=== PATIENT | male | born 1985 | race Two or more races ===

== ENCOUNTER 2023-01-28 19:20 | Day surgery (SDC) | payer OTHER, SELFPAY ==
[2023-01-28 19:30] VITALS: BP 144/84; PULSE 71; RESP 18; TEMP 36.4; O2SAT 99; BMI 26.5
--- NOTE | 2023-01-28 20:04 | CRLHL7_ITS ---
For Patients: As a result of the Century Cures Act, medical imaging exams and procedure reports are released immediately into your electronic medical record. You may view this report before your referring provider. If you have questions, please contact your health care provider. INDICATION: Abdominal pain. Right lower quadrant pain TECHNIQUE: CT abdomen and pelvis acquired with 96 cc Isovue 370 IV contrast. COMPARISON: None. FINDINGS: Lower chest: Scattered atelectasis. Tiny hiatal hernia. Liver: Unremarkable. Normal in size and attenuation. No suspicious masses. Gallbladder and bile ducts: Unremarkable. No stones or inflammation. No biliary dilatation. Pancreas: Unremarkable. No mass or inflammation. Spleen: Unremarkable. Normal in size. No masses. Adrenal glands: Unremarkable. No nodules. Kidneys: Unremarkable. No suspicious masses, stones, or hydronephrosis. GI tract: Mildly distended/hyperemic appendix with periappendiceal inflammatory stranding, most pronounced about the mid to distal aspect. Vasculature: Abdominal aorta is normal in caliber. Mesenteric arteries are patent. Lymph nodes: No lymphadenopathy. Peritoneum/Abdominal Wall: Unremarkable. No sign of mass or infiltration. No free air or significant free fluid. Pelvis: Mildly distended bladder with circumferential wall thickening. Recommend correlation with urinalysis if UTI suspected. Bones: Unremarkable for age. IMPRESSION: Findings suggestive of acute uncomplicated appendicitis. No drainable fluid collection. Please note that all CT scans at this facility use dose modulation, iterative reconstruction, and/or weight-based dosing when appropriate to reduce radiation dose to as low as reasonably achievable. Dictated by Margarito Poole MD @ 01/28/2023 8:37:59 PM (Electronically Signed)
--- NOTE | 2023-01-28 20:06 | ED_ITS ---
HPI - Abdominal Pain General Chief Complaint: Abdominal Pain Stated Complaint: abdominal pain Time Seen by Provider: 01/28/23 20:00 History of Present Illness HPI narrative: Patient is a healthy 37-year-old gentleman who comes in today with 4 days parent bili cool pain which now radiates to the right lower quadrant. He has had some loose stools and diarrhea. He has had nausea without vomiting. He has had no fevers no chills no night sweats. He has noticed increased difficulty with rebound tenderness over the last several days. He has had no similar symptoms and is taking Tylenol Motrin to limited extent with no affect. No dysuria is noted no chest pain or shortness of breath. Related Data Home Medications Medication Instructions Recorded Confirmed No Known Home Medications 01/28/23 01/28/23 Allergies Allergy/AdvReac Type Severity Reaction Status Date / Time No Known Drug Allergies Allergy Verified 01/28/23 19:33 Review of Systems Status of ROS Reports: 10 or more systems reviewed and unremarkable except as noted in History and below PFSH PFS Social History Smoking Status: Never smoker Do you use any of these nicotine containing products: None Second hand tobacco smoke exposure: No How often do you have a drink containing alcohol: 4 or more times a week How many standard drinks containing alcohol do you have on a typical day: 3 or 4 AUDIT-C Alcohol total score: 5 Non-prescribed substance use: denies use Exam Narrative: Exam Narrative: EXAM GENERAL: Patient appears comfortable and well. EYES: No scleral icterus. LYMPH: No supraclavicular or cervical lymphadenopathy. SKIN: Visible skin seen during exam normal or with benign process only. EXT: No dependent lower extremity pedal edema. HEART: Regular rate and rhythm with no murmurs, rubs, or gallops. LUNGS: Clear to auscultation bilaterally with no crackles or wheezes. ABD: Nondistended hypoactive bowel sounds with tenderness in the right lower quadrant mild rebound noted. PSYCH: Good eye contact, speech is not pressured. Const: Vital Signs, click to edit/add: Vital Signs - 24 hr 01/28/23 19:30 Temperature 97.5 F L Pulse Rate [Pulse Oximeter] 71 Respiratory Rate 18 Blood Pressure [Ri ght Upper Arm] 144/84 H Pulse Oximetry 99 Oxygen Delivery Me thod Room Air Course Course ED Course: Patient seen examined. CBC amylase CMP UA lactate CT abdomen pelvis ordered. Vital Signs Vital signs: Initial Vital Signs Temperature 97.5 F L 01/28/23 19:30 Temperature Source Temporal Artery Scan 01/28/23 19:30 Pulse Rate 71 01/28/23 19:30 Respiratory Rate 18 01/28/23 19:30 Blood Pressure 144/84 H 01/28/23 19:30 Blood Pressure Mean 104 01/28/23 19:30 Blood Pressure Position Sitting 01/28/23 19:30 Pulse Oximetry 99 01/28/23 19:30 Oxygen Delivery Method Room Air 01/28/23 19:30 Vital Signs Temperature 97.5 F L 01/28/23 19:30 Pulse Rate 71 01/28/23 19:30 Respiratory Rate 18 01/28/23 19:30 Blood Pressure 144/84 H 01/28/23 19:30 Pulse Oximetry 99 01/28/23 19:30 Oxygen Delivery Method Room Air 01/28/23 19:30 Temperature 97.5 F L 01/28/23 19:30 Pulse Rate 71 01/28/23 19:30 Respiratory Rate 18 01/28/23 19:30 Blood Pressure 144/84 H 01/28/23 19:30 Pulse Oximetry 99 01/28/23 19:30 Oxygen Delivery Method Room Air 01/28/23 19:30 MDM - Abdominal Pain MDM Narrative Medical decision making narrative: Patient is a 37-year-old gentleman comes in today with 3-4 days of right lower quadrant pain. Laboratory workup is largely unremarkable but CT of the abdomen pelvis shows acute uncomplicated non perforated appendicitis. Patient will be kept NPO. He will be admitted to Dr. Xin malave General surgery who will begin IV Zosyn and plan to operate in the morning. Differential Diagnosis Differential diagnosis: Likely abdominal pain, acute appendicitis, calculus of kidney, constipation, gastroenteritis, pancreatitis and small bowel obstruction Lab Data Labs: Lab Results 01/28/23 01/28/23 Range/Units 20:15 20:30 WBC 8.70 (4.50-11.00) K/uL RBC 4.78 (4.30-5.90) m/uL Hgb 14.5 (13.5-17.5) gm/dL Hct 43.3 (37.0-53.0) % MCV 91 (80-100) fL MCH 30 (26-34) pg MCHC 34 (32-36) gm/dL RDW Coeff of Roger 12.6 (11.5-15.5) % Plt Count 268 (140-440) K/uL Neut % (Auto) 54.5 (42.0-72.0) % Lymph % (Auto) 30.3 (20-44) % Screven % (Auto) 8.4 (0.0-11.0) % Eos % (Auto) 6.2 (0.0-7.0) % Baso % (Auto) 0.6 (0.0-3.0) % Neut # (Auto) 4.74 (1.7-7.0) K/uL Lymph # (Auto) 2.64 (0.90-2.90) K/uL Screven # (Auto) 0.70 (0.00-0.90) K/UL Eos # (Auto) 0.54 H (0.00-0.50) K/uL Baso # (Auto) 0.05 (0.00-0.30) K/uL Abs Immat Gran (auto) 0.00 (0.00-0.30) K/uL Imm/Tot Granulo (auto) 0.0 % Sodium 140 (135-149) mmol/L Potassium 3.6 (3.6-5.1) mmol/L Chloride 99 (96-114) mmol/L Carbon Dioxide 28 (20-32) mmol/L Anion Gap 13 (7-15) mEq/L BUN 12 (5-24) mg/dL Creatinine 1.1 (0.5-1.5) mg/dL Estimated Creat Clear 98.88 Estimated GFR 89 ml/min Glucose 95 (60-115) mg/dL Lactate 0.6 (0.5-1.9) mmol/L Calcium 9.5 (8.4-10.6) mg/dL Total Bilirubin 0.8 (0.1-1.5) mg/dL AST 33 (12-35) U/L ALT 44 (4-50) U/L Alkaline Phosphatase 92 (40-150) U/L Total Protein 8.0 (6.0-8.3) g/dL Albumin 4.5 (3.3-5.0) g/dL Amylase 95 H (18-89) U/L Discharge Plan Discharge Clinical Impression: Acute appendicitis Patient Disposition: Admitted As Observation Condition: Stable Activity Level: Other Discharge Diet: Other Prescriptions: No Action No Known Home Medications Follow Up/Referrals: Provider,Not a Local [Primary Care Provider] -
[2023-01-28 20:29] LABS: Basophils Absolute Auto 0.05 K/uL (0.00-0.30); Basophils Percent Auto 0.6 % (0.0-3.0); Eosinophils Absolute Auto 0.54 K/uL (0.00-0.50); Eosinophils Percent Auto 6.2 % (0.0-7.0); Hematocrit 43.3 % (37.0-53.0); Hemoglobin* 14.5 gm/dL (13.5-17.5); Lymphocytes Absolute Auto 2.64 K/uL (0.90-2.90); Lymphocytes Percent Auto 30.3 % (20-44); Mean Corpuscular HGB Conc 34 gm/dL (32-36); Mean Corpuscular Hemoglobin 30 pg (26-34); Mean Corpuscular Volume 91 fL (80-100); Monocytes Percent Auto 8.4 % (0.0-11.0); Neutrophils Absolute Auto 4.74 K/uL (1.7-7.0); Neutrophils Percent Auto 54.5 % (42.0-72.0); Platelet Count* 268 K/uL (140-440); RDW Coefficient of Variation % 12.6 % (11.5-15.5); Red Blood Count 4.78 m/uL (4.30-5.90)
[2023-01-28 20:32] LABS: Slide Review Reflex No
[2023-01-28 20:41] LABS: Lactate* 0.6 mmol/L (0.5-1.9)
[2023-01-28 20:42] LABS: Chloride* 99 mmol/L (96-114)
[2023-01-28 20:43] LABS: Albumin* 4.5 g/dL (3.3-5.0)
[2023-01-28 20:44] LABS: Potassium* 3.6 mmol/L (3.6-5.1); Sodium* 140 mmol/L (135-149)
[2023-01-28 20:46] LABS: Alanine Aminotransferase* 44 U/L (4-50); Alkaline Phosphatase* 92 U/L (40-150); Amylase* 95 U/L (18-89); Anion Gap 13 mEq/L (7-15); Aspartate Amino Transferase* 33 U/L (12-35); Bilirubin Total* 0.8 mg/dL (0.1-1.5); Blood Urea Nitrogen* 12 mg/dL (5-24); Carbon Dioxide* 28 mmol/L (20-32); Creatinine* 1.1 mg/dL (0.5-1.5); Est. Creatinine Clearance* 98.88; Estimated Glomerular Filt Rate 89 ml/min; Glucose* 95 mg/dL (60-115)
[2023-01-28 20:47] LABS: Calcium* 9.5 mg/dL (8.4-10.6)
[2023-01-28 20:48] LABS: Appearance Urine Clear (Clear); Bilirubin Urine Negative (Negative); Blood Urine Negative (Negative); Color Urine Yellow (Yellow); Glucose Urine Negative (Negative); Ketones Urine Negative (Negative); Leukocyte Esterase Urine Negative (Negative); Nitrite Urine Negative (Negative); Protein Urine Negative (Negative); Specific Gravity Urine 1.015 (1.000-1.030); Urobilinogen Urine 0.2 (0.2-1.0)
[2023-01-28] MEDS: PIPERACILLIN/TAZOBACTAM 3.375 GM in 0.9 % SODIUM CHLORIDE Mini-bag 100 ML IVPB (21:33)
[2023-01-28] MEDS: 0.9 % SODIUM CHLORIDE 1000 ml 1,000 ML 125 ML IV (21:33)
[2023-01-28 21:52] VITALS: BP 131/100; PULSE 71; RESP 18; TEMP 36.6; O2SAT 100; BMI 27.1
[2023-01-29] VITALS (16 sets, daily range): BP systolic 109–142; BP diastolic 66–89; PULSE 55–84; RESP 16–18; TEMP 35.9–36.7; O2SAT 98–100
[2023-01-29] MEDS: PIPERACILLIN/TAZOBACTAM 3.375 GM in 0.9 % SODIUM CHLORIDE Mini-bag 100 ML IVPB ×2 (03:26→09:12)
--- NOTE | 2023-01-29 06:20 | PC.NURSE ---
END OF SHIFT NOTE: PT PLEASANT AND COOPERATIVE. A&Ox3. DENIES CP, SOB, N/V. AMBULATES INDEPENDENTLY. VSS ON RA; AFEBRILE. RLQ PAIN 3/10 WHICH HAS BEEN TOLERABLE OVERNIGHT. CALL LIGHT WITHIN PT?S REACH. NPO SINCE ARRIVAL TO THE UNIT @2151. ?
[2023-01-29] MEDS: LACTATED RINGERS 1000 ML 1,000 ML 100 ML IV (08:56)
--- NOTE | 2023-01-29 09:04 | P.GSHP_ITS ---
History of Present Illness History of Present Illness Date Seen: 01/29/23 Chief complaint: abdominal pain Narrative: Cooper Mohan is a 37 year old male who presented to the emergency department with right lower quadrant abdominal pain. He states that the pain started 4 days earlier. Was initially in the epigastric region but the migrated to the right lower quadrant. The pain was persistent and described as an ?achy sensation?. He has had a decrease in appetite over last few days but is feeling hungry this morning. Food would make the pain worse. He denies any nausea or vomiting. Has had some mild diarrhea. No fevers at home. He has never had abdominal surgery before. Review of Systems Status of ROS: Reports: 10 or more systems reviewed and unremarkable except as noted in History and below PFSH PFS Social History What is your current living situation?: I presently have a place to live Problems where you live: no known problems Problems where you live details: N/A In the past 12 months, utilities in danger of being shut off: no In past 12 months, lack of transportation kept you from medical appts, meetings, work, or getting things needed for daily living: no In the past 12 mos, have been you worried that your food would run out before you had money to buy more?: never true In the past 12 mos, the food you bought just didn't last and you didn't have money to buy more?: never true Highest level of school completed/degree received: Associate degree: occupational, technical, vocational program Smoking Status: Never smoker Do you use any of these nicotine containing products: None Second hand tobacco smoke exposure: No How often do you have a drink containing alcohol: 4 or more times a week Alcohol type: beer How many standard drinks containing alcohol do you have on a typical day: 3 or 4 AUDIT-C Alcohol total score: 5 Non-prescribed substance use: denies use Caffeine: Yes (COFFEE 6 CUPS/DAILY) How often does anyone, including family, friends and others, physically hurt you : never How often does anyone, including family, friends and others, insult or talk down to you: never How often does anyone, including family, friends and others, threaten you with harm: never How often does anyone, including family, friends and others, scream or curse at you: never service: No Meds Home Medications and Allergies Home Medications Medication Instructions Recorded Confirmed Type No Known Home Medications 01/28/23 01/28/23 History Allergies Allergy/AdvReac Type Severity Reaction Status Date / Time No Known Drug Allergies Allergy Verified 01/28/23 19:33 Exam Narrative: Exam Narrative: General: Alert and oriented, no acute distress. Nontoxic in appearance Respiratory: Equal breath rise, maintained on room air CV: Well perfused, regular rhythm and rate Abdomen: Soft, mild tenderness to deep palpation right lower quadrant with no guarding or rebound. Const: Vital Signs, click to edit/add: Vital Signs - 24 hr 01/28/23 19:30 01/28/23 21:52 01/28/23 21:52 Temperature 97.5 F L 97.9 F 97.9 F Pulse Rate [Pulse Oximeter] 71 71 71 Respiratory Rate 18 18 18 Blood Pressure [Ri ght Arm] 131/100 H 131/100 H Blood Pressure [Ri ght Upper Arm] 144/84 H Pulse Oximetry 99 100 100 Oxygen Delivery Me thod Room Air Room Air Room Air 01/28/23 21:52 01/28/23 21:52 01/29/23 00:10 Temperature 97.4 F L Pulse Rate [Pulse Oximeter] 71 62 Respiratory Rate 18 16 Blood Pressure [Ri ght Arm] 122/75 Blood Pressure [Ri ght Upper Arm] Pulse Oximetry 100 98 Oxygen Delivery Me thod Room Air Room Air 01/29/23 03:00 01/29/23 07:00 01/29/23 07:00 Temperature 98.1 F Pulse Rate [Pulse Oximeter] 55 L 60 60 Respiratory Rate 16 18 16 Blood Pressure [Ri ght Arm] 109/68 123/76 Blood Pressure [Ri ght Upper Arm] Pulse Oximetry 99 98 Oxygen Delivery Me thod Room Air Room Air Results Results Labs: No leukocytosis. Abdomen CT scan report/results: report reviewed and image reviewed Assessment and Plan Assessment and plan (1) Acute appendicitis: Status: Acute Plan The patient presented with a history and exam suspicious for possible appendicitis. Would expect him to have more of a leukocytosis and abdominal pain if this process had been going on for [address] scan was obtained which showed dilation of the appendix with mild surrounding inflammation consistent with acute, uncomplicated appendicitis. I discussed the treatment options with the patient including non-surgical and surgical options. At this time he wishes to proceed with laparoscopic appendectomy. The risks of surgery were reviewed with the patient including the risks of bleeding, post-operative wound or intra-abdominal infection, injury to abdominal structures and possible conversion to an open operation. We also discussed anesthetic complications including [place], stroke, respiratory failure and blood clots. The patient voiced an understanding of our conversation, had the opportunity to ask questions, agreed to accept the risks of surgery and asked that we proceed with surgery.
[2023-01-29] MEDS: BUPIVACAINE 0.25% 30 ML INJECTION (09:39)
--- NOTE | 2023-01-29 09:43 | PM.GSPRC ---
Operative Note Pre-op diagnosis: Acute appendicitis Post-op diagnosis: Same, non perforated. Early appendicitis Type of Procedure: Laparoscopic appendectomy Indications: Patient is a 37-year-old male who came in with CT scan findings concerning for acute, uncomplicated appendicitis. Risks and benefits of operative intervention were discussed at length with the patient. Risks included but was not limited to: Bleeding, infection, risk of damage to surrounding structures, possible need for additional procedures, possible need to convert to an open operation and postoperative complications such as pneumonia, pulmonary emboli or CA. All questions and concerns were addressed with the patient agreeing to proceed. Procedure Description: After discussing the risks and benefits of the procedure, the patient signed informed consent.? The operative site was marked and the patient was brought to the operating room and placed on the operating table in supine position.? Care was taken to pad the patient's pressure points.?? The patient was then intubated by anesthesia.?? The operative site was then prepped and draped in the usual sterile fashion.? A time-out was then performed. Entrance to the abdomen was obtained via a 5 mm optical trocar in the left upper quadrant. The abdomen was insufflated and briefly surveyed for any signs of injury. There were none. A 12 mm port was placed lateral to the umbilicus as well as a 5 mm port in the left lower quadrant under direct vision. The patient was then placed in Trendelenburg position with the right side up. The small bowel was gently moved out of the way and the appendix was in view. The appendix was easily visualized, was grasped and pulled into view. Normal appendix near the base. Some mild dilation mid and tip of the appendix. No evidence of perforation. A mesenteric window was created between the base of the appendix and the mesoappendix. A 30 mm Endo-KOBI enrique load stapler was then used to transect the appendix at its base. A 60 mm vascular load stapler was then used to take the mesoappendix. The staple lines were inspected for bleeding. Small areas of pinpoint bleeding on the mesoappendix was controlled with electrocautery. The appendix was then removed from the abdomen using an Endo-Catch bag. The specimen was sent to pathology. The 12 mm port site fascia was closed with 0 Vicryl via the Rony-Gerry. All other ports were removed under direct visualization. The skin was then closed with absorbable subcuticular suture. Sterile dressings were then applied. Instrument sponge and needle counts were correct at the end of the case. The patient was then woken and transported to the PACU in stable condition. Findings: Early appendicitis, non perforated. Anesthesia: GETA Surgeon: Abena Walton MD Estimated blood loss (mL): 2 Specimen: Appendix Condition: stable Disposition: PACU Date of procedure: 01/29/23
--- NOTE | 2023-01-29 10:00 | P.ANES_ITS ---
Anesthesia Charges Start Date/Time Anesthesia Start Date: 01/29/23 Anesthesia Start Time: 08:52 Stop Date/Time Anesthesia Stop Date: 01/29/23 Anesthesia Stop Time: 09:59 Summary Emergency: HOSPICE SOCIAL WORKER
[2023-01-29] MEDS: ACETAMINOPHEN 325 MG TABLET 650 MG PO (12:35)
== END 2023-01-29 13:45 | disposition home or self-care (01) ==
LOC: ED 21:19 → SS 21:49 → MEDSURG 21:50
PROVIDERS: Emergency Provider Internal Medicine; Visit Provider Surgery
PROC: 0DTJ4ZZ Resection of Appendix, Percutaneous Endoscopic Approach (ICD-10-PCS; CPT 44970; principal; 2023-01-29 09:00)
DX: K35.80 Unspecified acute appendicitis (principal)
CPT/HCPCS: 44970; 00840; 36415; 74177; 80053; 81003; 82150; 83605; 85025; 88304; 99140; 99283; 99284; A9270; J0330; J0665; J1100; J1885; J2250; J2405; J2543; J2704; J2710; J3010; J7030; J7120; Q9967

== ENCOUNTER 2025-01-17 21:07 | Emergency (ER) | payer OTHER, SELFPAY ==
[2025-01-17] VITALS (28 sets, daily range): BP systolic 124–164; BP diastolic 69–94; PULSE 74–115; RESP 9–34; TEMP 36.8; O2SAT 95–98; BMI 26.5
--- OUTSIDE RECORDS SUMMARY | 2025-01-17 21:09 | XMS_ITS | Clinical Summary ---
Author Organization [facility] Address [address] [place] [id number] Care Team Providers Care Sales Representative Facility Services Name Role Phone Pcp, No Primary Care Provider Unavailabl e Allergies No known active allergies Medications MAGIC MOUTHWASH 1:1 (AMB SPECIAL MIXTURE)Indicat ions:Sore throat Take 5-10 mL by mouth 4 times daily if needed. May swish & swallow or swish & spit 240 mL 02/15/2018 Active Active Problems No known active problems Immunizations Immunization Administration Dates Next Due DTP 03/27/1993,08/03/1992,05/29/1992 ,03/26/1992 Hepatitis B (Peds) 05/03/2000,12/04/1999, 000 Influenza, IIV3 (Age >=3 years) 01/31/2003 MMR 05/20/1998,03/26/1992 Oral Polio Vaccine 03/26/1997,03/27/1993, 993,05/29/1992 Td (Age >=7 Years) 10/06/1996 Tuberculin (PPD) 03/26/1992 Social History Tobacco Use Types Packs/Day Years Used Date Smoking Tobacco: Never Smokeless Tobacco: Never Alcohol Use Standard Drinks/Week Comments Yes 0 (1 standard drink = 0.6 oz pur e alcohol) Social Connections Answer Date Recorded Frequency of Communication with Friends and Fami ly Not on file 03/28/2021 Financial Resource Strain Answer Date R ecorded Difficulty of Paying Living Expenses Not on file 03/28/2021 Difficulty of Paying Living Expenses Not on file 03/28/2021 Sex and Gender Information Value Date Recorded Sex Assigned at Not on file Legal Sex Male 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 Gender Identity Not on file Sexual Orientation Not on file Obstetrics History Last Filed Vital Signs Vital Sign Reading Time Taken Comments Blood Pressure 128/80 02/15/2018 11:14 AM DRYING ROOM SUPERVISOR Pulse 80 02/15/2018 11:14 AM DRYING ROOM SUPERVISOR Temperature 37 C (98.6 F) 02/15/2018 11:14 AM DRYING ROOM SUPERVISOR Respiratory Rate - - Oxygen Saturation - - Inhaled Oxygen Concentration - - Weight 84.7 kg (186 lb 11.2 oz) 018 11:14 AM DRYING ROOM SUPERVISOR Height 180.3 cm (5' 11) 02/15/2018 11: 14 AM DRYING ROOM SUPERVISOR Body Mass Index 26.04 02/15/2018 11:14 AM DRYING ROOM SUPERVISOR Plan of Treatment Health Maintenance Due Date Last Done Comments Depression screening for age 12+ 1998 HIV for age 15-65 2001 Hepatitis C screening for ag e 18-79 2004 Tetanus booster 10/06/2006 10/06/1996 HPV series for age 9-45 (1 - 3-dose SCDM series) 2013 BMI (ht and wt on same day) for age 18+ 02/15/2019 02/15/2018, 11/25/2016 Lipids for age 35-44 2021 COVID-19 vaccine series (2024- season) 2024 01/20/2021, 12/22/2020 Influenza Vaccine (#1) 2024 01/31/2003 RSV vaccine for adults or (1 - 1-dose 75+ series) 2061 Hepatitis B series for 19+ Completed 05/03, 12/04/1999, 10/28/1999 Pneumococcal series for age 6-49 Aged Out No longer eligible b ased on patient's age to complete this topic Insurance [employer] [address] Care Teams Sales Representative Facility Services Relationship Specialty Start Date End Date Pcp, No . PCP - General 02/15/18
--- NOTE | 2025-01-17 21:41 | CRLHL7_ITS ---
For Patients: As a result of the Cures Act, medical imaging exams and procedure reports are released immediately into your electronic medical record. You may view this report before your referring provider. If you have questions, please contact your health care provider. Indication: Tachycardia Technique: Two views of the chest Comparison: None Findings/Impression: No acute cardiopulmonary process detected. Dictated by Leonel Landry MD @ 01/17/2025 9:59:31 PM (Electronically Signed)
[2025-01-17 21:44] LABS: Troponin, Point-of-Care* 0.08 ng/ml (0.01-0.04)
[2025-01-17] MEDS: ASPIRIN 81 MG TAB.CHEW 324 MG PO (21:47)
[2025-01-17 21:50] LABS: Lactate* 2.3 mmol/L (0.5-1.9)
[2025-01-17 21:53] LABS: Hematocrit* 44.1 % (37.0-53.0); Hemoglobin* 14.9 gm/dL (13.5-17.5); Immature Granulocytes Abs Auto 0.01 K/uL (0.00-0.30); Immature Granulocytes Pct Auto 0.1 %; Lymphocytes Absolute Auto 3.09 K/uL (0.90-2.90); Mean Corpuscular HGB Conc 34 gm/dL (32-36); Mean Corpuscular Hemoglobin 30 pg (26-34); Mean Corpuscular Volume 90 fL (80-100); RDW Coefficient of Variation % 12.8 % (11.5-15.5); Red Blood Count* 4.93 m/uL (4.30-5.90); White Blood Count* 7.70 K/uL (4.50-11.00)
[2025-01-17 21:57] LABS: INR 0.91 (0.91-1.10); Prothrombin Time 13.0 Seconds
[2025-01-17 22:05] LABS: D Dimer Quantitative* < 0.27 ug/ml (0.00-0.50); Slide Review Reflex No
[2025-01-17 22:16] LABS: Chloride* 103 mmol/L (96-114); Potassium* 3.5 mmol/L (3.6-5.1); Sodium* 137 mmol/L (135-149)
[2025-01-17 22:18] LABS: Blood Urea Nitrogen* 16 mg/dL (5-24); Creatinine* 1.0 mg/dL (0.5-1.5); Est. Creatinine Clearance* 106.68; Estimated Glomerular Filt Rate 99 ml/min
[2025-01-17 22:19] LABS: Anion Gap 10 mEq/L (7-15); Calcium* 9.4 mg/dL (8.4-10.6); Carbon Dioxide* 24 mmol/L (20-32); Ethanol* 0.04 % (0.01-0.03); Glucose* 109 mg/dL (60-115)
[2025-01-17 22:30] LABS: NT Pro B Type NatriureticPept* 20 pg/mL (See Note)
[2025-01-17 22:35] LABS: PCR FLU A Negative PCR FLU A (Negative); PCR FLU B Negative PCR FLU B (Negative); PCR RSV Negative PCR RSV (Negative); SARS PCR* Negative SARS-CoV-2 (Negative)
--- NOTE | 2025-01-17 23:12 | ED.ARRPALP ---
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 it was on off during this time. He was able to terminate the tachycardia by doing vagal maneuvers. He has never before had this, he had some mild chest discomfort at the time but he would describe it as pain. No shortness of breath, no previous history of cardiac issues, which and his risk factors actually are pretty minimal also he is adopted, no history of hyperlipidemia no history of diabetes lifetime nonsmoker. Usually says he has bradycardia, denies using any street drugs, did have a little bit alcohol today, but not on a regular basis, he is here with his was in an N ICU nurse complaint: rapid heart beat, heart racing and palpitations Onset (ago): hour(s) Context: occurred during rest Treatments prior to arrival: vagal maneuvers Related Data Previous Rx's ?Medication ?Instructions ?Recorded hydrocodone 5 mg-acetaminophen 325 1 tab PO Q6H PRN pain #10 tabs 01/29/23 mg tablet ondansetron 4 mg disintegrating 4 mg PO Q6H #20 tabs 01/29/23 tablet sennosides 8.6 mg capsule (senna) 8.6 mg PO DAILY PRN constipation 01/29/23 #90 caps Allergies Allergy/AdvReac Type Severity Reaction Status Date / Time No Known Drug Allergies Allergy Verified 01/17/25 21:17 Review of Systems Status of ROS: Reports: 10 or more systems reviewed and unremarkable except as noted in History and below PFSH PFSH Social History What is your current living situation?: I presently have a place to live Problems where you live: no known problems Problems where you live details: N/A In the past 12 months, utilities in danger of being shut off: no In past 12 months, lack of transportation kept you from medical appts, meetings, work, or getting things needed for daily living: no In the past 12 mos, have been you worried that your food would run out before you had money to buy more?: never true In the past 12 mos, the food you bought just didn't last and you didn't have money to buy more?: never true Highest level of school completed/degree received: Associate degree: occupational, technical, vocational program Smoking Status: Never smoker Do you use any of these nicotine containing products: None Second hand tobacco smoke exposure: No How often do you have a drink containing alcohol: 4 or more times a week Alcohol type: beer How many standard drinks containing alcohol do you have on a typical day: 3 or 4 AUDIT-C Alcohol total score: 5 Non-prescribed substance use: denies use Caffeine: Yes (COFFEE 6 CUPS/DAILY) How often does anyone, including family, friends and others, physically hurt you: never How often does anyone, including family, friends and others, insult or talk down to you: never How often does anyone, including family, friends and others, threaten you with harm: never How often does anyone, including family, friends and others, scream or curse at you: never service: No Exam Narrative: Exam Narrative: On examination in room 8 he is in no apparent distress, speaking to me normally he has a little bit tachycardic in the 107 range, he dropped down to 80s, by the time I saw him his pupils are equal round reactive to light there is no scleral icterus redness TMs are normal oropharynx normal carotid upstrokes equal bilaterally and JVP is flat his chest is good air entry bilateral with no wheezing crackles noted his heart sounds are normal no clicks murmurs or gallops his abdomen is soft there is no guarding no organomegaly bowel sounds are normal moves all extremities independently and well no evidence of any peripheral problems with circulation such as normal cap refill, and normal peripheral pulses he has no edema. Const: Vital Signs, click to edit/add: Vital Signs - 24 hr 01/17/25 21:13 01/17/25 21:21 01/17/25 21:24 Temperature 98.2 F Pulse Rate 115 H 105 H Pulse Rate [Right Pulse Oximeter] 115 H Respiratory Rate 16 16 16 Blood Pressure 146/94 H Blood Pressure [Ri ght Upper Arm] 164/92 H Pulse Oximetry 98 96 97 Oxygen Delivery Me thod Room Air 01/17/25 21:30 01/17/25 21:32 01/17/25 21:33 Temperature Pulse Rate 99 107 H 110 H Pulse Rate [Right Pulse Oximeter] Respiratory Rate 17 16 16 Blood Pressure 157/91 H Blood Pressure [Ri ght Upper Arm] Pulse Oximetry 95 98 97 Oxygen Delivery Me thod 01/17/25 21:41 01/17/25 21:41 01/17/25 21:45 Temperature Pulse Rate 97 Pulse Rate [Right Pulse Oximeter] 98 Respiratory Rate 18 17 Blood Pressure Blood Pressure [Ri ght Upper Arm] Pulse Oximetry 96 96 95 Oxygen Delivery Me thod Room Air 01/17/25 21:46 01/17/25 21:52 01/17/25 22:00 Temperature Pulse Rate 105 H 97 99 Pulse Rate [Right Pulse Oximeter] Respiratory Rate 18 13 13 Blood Pressure 147/88 H Blood Pressure [Ri ght Upper Arm] Pulse Oximetry 96 96 97 Oxygen Delivery Me thod 01/17/25 22:01 01/17/25 22:02 01/17/25 22:15 Temperature Pulse Rate 102 H 94 92 Pulse Rate [Right Pulse Oximeter] Respiratory Rate 12 16 14 Blood Pressure 146/84 H Blood Pressure [Ri ght Upper Arm] Pulse Oximetry 97 96 97 Oxygen Delivery Me thod 01/17/25 22:16 01/17/25 22:32 01/17/25 22:33 Temperature Pulse Rate 107 H 92 Pulse Rate [Right Pulse Oximeter] Respiratory Rate 18 18 Blood Pressure 134/76 150/84 H Blood Pressure [Ri ght Upper Arm] Pulse Oximetry 97 96 Oxygen Delivery Me thod 01/17/25 22:45 01/17/25 22:46 01/17/25 23:00 Temperature Pulse Rate 89 91 91 Pulse Rate [Right Pulse Oximeter] Respiratory Rate 9 L 18 34 H Blood Pressure Blood Pressure [Ri ght Upper Arm] Pulse Oximetry 96 96 97 Oxygen Delivery Me thod 01/17/25 23:02 01/17/25 23:15 01/17/25 23:17 Temperature Pulse Rate 77 78 84 Pulse Rate [Right Pulse Oximeter] Respiratory Rate 15 9 L 22 Blood Pressure 147/86 H 149/89 H Blood Pressure [Ri ght Upper Arm] Pulse Oximetry 97 98 97 Oxygen Delivery Me thod Course Reevaluation(s) Time of Reevaluation #1: 23:16 Reevaluation #1: Discussed with the patient his D-dimer is negative visit for troponin is elevated at 0.08, I wonder if this is from his tachycardia that he had, we will do a 2nd 1 to ensure that he is coming down. In the delta is reasonable otherwise all talk to Cardiology. I also think further evaluation such as a stress test and likely a Zio patch would be needed. He is currently pain-free with a heart rate of 82. Time of Reevaluation #2: 00:38 Reevaluation #2: I spoke to Cardiology Dr. Nellie Fierro, I ran the case by her, she year agreed with the Zio patch, and also outpatient stress echo, and likely formal echo. Aspirin 81 mg a day, she also recommended a cartia monitor.. Discussed with the patient, he feels better, he has cut a little bit of what he describes as vague pressure, but otherwise feels good. He will be fitted with a Zio patch in discharged home at this point. Vital Signs Vital signs: Initial Vital Signs Temperature 98.2 F 01/17/25 21:13 Temperature Source Temporal Artery Scan 01/17/25 21:13 Pulse Rate 115 H 01/17/25 21:13 Pulse Rhythm Regular 01/17/25 21:13 Pulse Strength 3+ Normal 01/17/25 21:13 Respiratory Rate 16 01/17/25 21:13 Blood Pressure 164/92 H 01/17/25 21:13 Blood Pressure Mean 116 H 01/17/25 21:13 Blood Pressure Position Sitting 01/17/25 21:13 Pulse Oximetry 98 01/17/25 21:13 Oxygen Delivery Method Room Air 01/17/25 21:13 Vital Signs Temperature 98.2 F 01/17/25 21:13 Pulse Rate 115 H 01/17/25 21:13 Respiratory Rate 16 01/17/25 21:13 Blood Pressure 164/92 H 01/17/25 21:13 Pulse Oximetry 98 01/17/25 21:13 Oxygen Delivery Method Room Air 01/17/25 21:13 Temperature 98.2 F 01/17/25 21:13 Pulse Rate 84 01/17/25 23:17 Respiratory Rate 22 01/17/25 23:17 Blood Pressure 149/89 H 01/17/25 23:17 Pulse Oximetry 97 01/17/25 23:17 Oxygen Delivery Method Room Air 01/17/25 21:41 Medications Administered Medications: Discontinued Medications Generic Name Dose Route Start Last Admin Trade Name Bud PRN Reason Stop Dose Admin Aspirin 324 mg 01/17/25 21:41 01/17/25 21:47 Aspirin 81 Mg Tab.Chew PO 01/17/25 21:42 324 mg ONCE ONE Administration Sodium Chloride 1,000 mls @ 1,000 mls/hr 01/17/25 21:45 01/17/25 22:36 0.9 % Sodium Chloride 1000 Ml IV 01/17/25 22:44 Infused .Q1H PERLITA Infusion Sodium Chloride 1,000 mls @ 1,000 mls/hr 01/17/25 23:00 01/17/25 23:54 0.9 % Sodium Chloride 1000 Ml IV 01/17/25 23:59 Infused .Q1H PERLITA Infusion MDM - Arrhythmia/Palpitations MDM Narrative Medical decision making narrative: During the evaluation of this patient I considered multiple differential diagnosis is. The life-threatening differential diagnosis include coronary disease/NE, pulmonary embolism, pneumothorax, pneumonia, and aortic dissection. Other differential diagnosis included but were not limited to pericarditis, myocarditis, chest wall pain, GERD, esophageal rupture, rib fracture contusion, pleurisy, as well as other etiologies. Medical Records Attestation: I reviewed the patient's medical records. Lab Data Attestation: I reviewed the patient's lab results. Labs: Lab Results 01/17/25 01/17/25 01/17/25 Range/Units 21:29 21:41 21:42 WBC 7.70 (4.50-11.00) K/uL RBC 4.93 (4.30-5.90) m/uL Hgb 14.9 (13.5-17.5) gm/dL Hct 44.1 (37.0-53.0) % MCV 90 (80-100) fL MCH 30 (26-34) pg MCHC 34 (32-36) gm/dL RDW Coeff of Roger 12.8 (11.5-15.5) % Plt Count 333 (140-440) K/uL Neut % (Auto) 48.3 (42.0-72.0) % Lymph % (Auto) 40.1 (20-44) % Harrison % (Auto) 7.7 (0.0-11.0) % Eos % (Auto) 3.0 (0.0-7.0) % Baso % (Auto) 0.8 (0.0-3.0) % Neut # (Auto) 3.72 (1.7-7.0) K/uL Lymph # (Auto) 3.09 H (0.90-2.90) K/uL Harrison # (Auto) 0.60 (0.00-0.90) K/UL Eos # (Auto) 0.23 (0.00-0.50) K/uL Baso # (Auto) 0.06 (0.00-0.30) K/uL Abs Immat Gran (auto) 0.01 (0.00-0.30) K/uL Imm/Tot Granulo (auto) 0.1 % INR 0.91 (0.91-1.10) APTT 26 (23-33) Seconds D-Dimer Quant (PE/DVT) < 0.27 (0.00-0.50) ug/ml Sodium 137 (135-149) mmol/L Potassium 3.5 L (3.6-5.1) mmol/L Chloride 103 (96-114) mmol/L Carbon Dioxide 24 (20-32) mmol/L Anion Gap 10 (7-15) mEq/L BUN 16 (5-24) mg/dL Creatinine 1.0 (0.5-1.5) mg/dL Estimated Creat Clear 106.68 Estimated GFR 99 ml/min Glucose 109 (60-115) mg/dL Lactate 2.3 H (0.5-1.9) mmol/L Calcium 9.4 (8.4-10.6) mg/dL Magnesium 2.0 (1.5-2.6) mg/dL C-Reactive Protein < 0.5 L (0.5-1.0) mg/dL NT-Pro-B Natriuret Pep 20 (See Note) pg/mL TSH 4.970 H (0.270-4.20) uIU/mL Ethyl Alcohol 0.04 H (0.01-0.03) % SARS-CoV-2 (PCR) Negative SARS-CoV-2 (Negative) Influenza Type A (PCR) Negative PCR FLU A (Negative) Influenza Type B (PCR) Negative PCR FLU B (Negative) RSV (PCR) Negative PCR RSV (Negative) POC Troponin I 0.08 H (0.01-0.04) ng/ml Troponin delta 0.02 Imaging Data Chest x-ray: Attestation: I have reviewed the pertinent imaging results. My impression: Chest x-ray is negative Radiologist's impression: [address] [address] Diagnostic Imaging Report Patient: Cooper Mohan MR#: [id number] : 1985 Acct:[id number] Loc: ED Service Date: 01/17/[address]: Ordering Physician: Nick Sarabia M.D. Date of Service: 01/17/25 Procedure(s): XR chest 2V Accession Number(s): [id number] cc: Provider,Not a Local; Nick Sarabia M.D.~ For Patients: As a result of the Cures Act, medical imaging exams and procedure reports are released immediately into your electronic medical record. You may view this report before your referring provider. If you have questions, please contact your health care provider. Indication: Tachycardia Technique: Two views of the chest Comparison: None Findings/Impression: No acute cardiopulmonary process detected. Dictated by Leonel Landry MD @ 01/17/2025 9:59:31 PM (Electronically Signed) ECG Data Attestation: I personally reviewed and interpreted this ECG as follows: ECG interpretation date: 01/17/25 Prior ECG tracings: not available for review Interpretation: EKG shows sinus tachycardia with a ventricular rate of 107, QRS is 92 QT is 322 and QTC is 429. No acute ST wave changes. Discharge Plan Discharge Clinical Impression: Palpitations, Sinus tachycardia Patient Disposition: Home w/ Parent or Adult Condition: Improved Instructions: Heart Palpitations (ED), Valsalva Maneuver (ED), Tachycardia (ED) Additional Instructions: As I discussed with you I discussed cardiology stay on aspirin 81 mg a day. Follow-up with Dr. Ledezma for your Zio patch read. Along with your echo and likely stress echo. Cardiology will also re to reach out to you. Increasing chest pain shortness of breath or exertional symptoms he should come back to the ER. Work as I discussed with the the foreign language interpreter suggested that cardia that will catch your tachycardia. Activity Level: Light activity Discharge Diet: Regular Prescriptions: No Action hydrocodone-acetaminophen 5-325 mg tablet 1 tab PO Q6H PRN (Reason: pain) Qty: 10 0RF senna 8.6 mg capsule 8.6 mg PO DAILY PRN (Reason: constipation) Qty: 90 0RF ondansetron 4 mg tablet,disintegrating 4 mg PO Q6H Qty: 20 0RF Follow Up/Referrals: Vega Ledezma [Other] Marcos Ledezma MD [Staff Physician, Family Practice] Provider,Not a Local [Primary Care Provider, Family Practice] Stand Alone Forms: MyHealth Info Instructions
[2025-01-18] VITALS: PULSE 81; RESP 13; O2SAT 97
[2025-01-18 00:01] VITALS: BP 119/70; PULSE 87; RESP 12; O2SAT 96
[2025-01-18 00:15] VITALS: PULSE 89; RESP 18; O2SAT 99
[2025-01-18 00:16] VITALS: BP 126/76; PULSE 82; RESP 11; O2SAT 98
[2025-01-18 00:30] VITALS: PULSE 72; RESP 19; O2SAT 99
[2025-01-18 00:31] VITALS: BP 130/77; PULSE 79; RESP 18; O2SAT 99
[2025-01-18 00:59] LABS: Troponin, Point-of-Care* 0.10 ng/ml (0.01-0.04)
== END 2025-01-18 01:00 | disposition home or self-care (01) ==
PROVIDERS: Emergency Provider Family Medicine
DX: R00.2 Palpitations (principal); R00.0 Tachycardia, unspecified; R07.89 Other chest pain
CPT/HCPCS: 36415; 71046; 80048; 82077; 83605; 83735; 83880; 84443; 84484; 85025; 85379; 85610; 85730; 86140; 87631; 93005; 93246; 94761; 96360; 96361; 99284; 99285; A9270; J7030

== ENCOUNTER 2025-01-29 11:47 | Outpatient (CLI) | payer OTHER, SELFPAY | END 2025-01-29 11:48 | disposition home or self-care (01) | LOC: FBOREF 11:47 | PROVIDERS: PCP Family Medicine; Visit Provider Family Medicine | DX: Z13.6 Encounter for screening for cardiovascular disorders (principal) | CPT/HCPCS: 80061 ==

== ENCOUNTER 2025-02-05 13:43 | Outpatient (CLI) | payer OTHER, SELFPAY ==
[2025-02-05 14:51] VITALS: BP 150/92; PULSE 95; RESP 18
--- NOTE | 2025-02-05 15:50 | W.PM.STED ---
Stress Test Note Date Date Seen: 02/05/25 Date of test: 02/05/25 Providers Primary care provider: Marcos Ledezma Stress test physician: Nick Sarabia Stress Test Note Stress test ordered: Stress Echo Indication for test: Chest pain Results discussion: This pleasant patient who developed an SVT, with a heart rate of 220, and significant chest pain with this, presents for the above test, after discussion the risks benefits and side effects he would like to proceed. Pretest EKG shows normal sinus rhythm, ventricular rate of 65 blood pressure 124/78. Standard [place] protocol is employed over a time course the 13 minutes. Test is terminated because of fulfillment of protocol, is maximum was 181, which is 116% of the maximum, maximum blood pressure was 172/80. During this test there is no specific ST wave changes suggestive of ischemia. He had no chest pain shortness of breath in the was no SVT. Impression: Negative electrographic portion of stress echo, subjectively negative Follow up suggested: Patient exercised to a very high workload, who was asymptomatic, we will await the report from Cardiology, but the preliminary that I reviewed with the tech was negative. Patient left this testing facility in good condition
== END 2025-02-05 15:03 | disposition home or self-care (01) ==
PROVIDERS: PCP Family Medicine; Visit Provider Family Medicine
DX: R07.9 Chest pain, unspecified (principal)
CPT/HCPCS: 93016; 93325; 93351